=== PATIENT | male | born 1995 | race Caucasian/White ===

== ENCOUNTER 2018-02-02 14:42 | Emergency (ER) | payer OTHER ==
[2018-02-02 14:50] VITALS: Ht 167.6 cm
[2018-02-02 16:08] VITALS: BP 149/83
== END 2018-02-02 16:08 | disposition home or self-care (01) ==
LOC: ED 14:42
DX: S39.012A Strain of muscle, fascia and tendon of lower back, initial encounter (principal); G89.29 Other chronic pain; F12.20 Cannabis dependence, uncomplicated; V03.99XA Pedestrian with other conveyance injured in collision with car, pick-up truck or van, unspecified whether traffic or nontraffic accident, initial encounter; Y93.89 Activity, other specified; Y92.89 Other specified places as the place of occurrence of the external cause; Y99.8 Other external cause status
CPT/HCPCS: Q0092

== ENCOUNTER 2018-02-14 18:34 | Emergency (ER) | payer OTHER ==
[~2018-02-14] VITALS: Ht 172.7 cm; Wt 88.9 kg
[2018-02-14 18:47] VITALS: Ht 172.7 cm; Wt 88.9 kg
[2018-02-14 20:07] VITALS: BP 113/58
== END 2018-02-14 20:07 | disposition home or self-care (01) ==
LOC: ED 18:34
DX: H66.92 Otitis media, unspecified, left ear (principal); G89.29 Other chronic pain; M54.9 Dorsalgia, unspecified

== ENCOUNTER 2020-05-16 11:54 | Emergency (ER) | payer OTHER ==
[~2020-05-16] VITALS: Ht 172.7 cm; Wt 65.3 kg
[2020-05-16 12:04] VITALS: BP 107/80; Ht 172.7 cm; Wt 65.3 kg
== END 2020-05-16 13:07 | disposition home or self-care (01) ==
LOC: ED 11:54
DX: H10.32 Unspecified acute conjunctivitis, left eye (principal); B35.0 Tinea barbae and tinea capitis; F12.20 Cannabis dependence, uncomplicated; G89.29 Other chronic pain; M54.9 Dorsalgia, unspecified